=== PATIENT | female | born 1990 ===

== ENCOUNTER 2017-11-19 19:07 | Emergency (ER) | payer MEDICAID ==
[2017-11-19 19:28] VITALS: BMI 26.0
[2017-11-19 19:31] VITALS: RESP 18; TEMP 98.1
[2017-11-19] MEDS ORDERED: Sodium Chloride 0.9% 1,000 ML IV STA (19:34)
--- NOTE | 2017-11-19 19:37 | ED PDOC ---
Arrival/HPI - General Time Seen by Provider: 11/19/17 19:29 Historian: Patient - History of Present Illness Narrative History of Present Illness (Text): 11/19/17 19:34 27yo female who present with complaint of suprapubic/pelvic pain x 2hours. Patient states she is currently 10weeks . states her first OB appointment is next week Saturday. She states pain started suddenly 2hours ago. Describes pain as pulling and cramp. Denies vaginal bleeding, vaginal discharge , nausea, vomiting, diarrhea, constipation, any other complaint. Past Medical History - Provider Review Nursing Documentation Reviewed: Yes Family/Social History - Physician Review Nursing Documentation Reviewed: Yes Family/Social History: Unknown Family HX Allergies/Home Meds Allergies/Adverse Reactions: Allergies No Known Allergies Allergy (Verified 11/19/17 19:33) Home Medications: Home Meds Medication Instructions Recorded Confirmed No Known Home Med 11/19/17 11/19/17 Review of Systems - Physician Review All systems were reviewed & negative as marked: Yes - Review of Systems Constitutional: Normal Eyes: Normal ENT: Normal Respiratory: Normal Cardiovascular: Normal Gastrointestinal: Abdominal Pain. absent: Constipation, Diarrhea, Nausea, Vomiting, Hematochezia, Hematemesis Genitourinary Female: Normal Musculoskeletal: Normal Skin: Normal Neurological: Normal Endocrine: Normal Hemo/Lymphatic: Normal Psychiatric: Normal Physical Exam Vital Signs Reviewed: Yes Vital Signs Temp Pulse Resp BP Pulse Ox 11/19/17 19:31 98.1 F 91 H 18 130/78 98 Temperature: Afebrile Blood Pressure: Normal Pulse: Regular Respiratory Rate: Normal Appearance: Positive for: Well-Appearing, Non-Toxic, Comfortable Pain Distress: None Mental Status: Positive for: Alert and Oriented X 3 - Systems Exam Head: Present: Atraumatic, Normocephalic Pupils: Present: PERRL Extroacular Muscles: Present: EOMI Conjunctiva: Present: Normal Mouth: Present: Moist Mucous Membranes Neck: Present: Normal Range of Motion Respiratory/Chest: Present: Clear to Auscultation, Good Air Exchange. No: Respiratory Distress, Accessory Muscle Use Cardiovascular: Present: Regular Rate and Rhythm, Normal S1, S2. No: Murmurs Abdomen: Present: Normal Bowel Sounds, Other (soft). No: Tenderness, Distention , Peritoneal Signs, Rebound, Guarding, McBurney's Point Tender, Rovsing's Sign Present Back: Present: Normal Inspection Upper Extremity: Present: Normal Inspection. No: Cyanosis, Edema Lower Extremity: Present: Normal Inspection. No: Edema Neurological: Present: GCS=15, CN II-XII Intact, Speech Normal Skin: Present: Warm, Dry, Normal Color. No: Rashes Psychiatric: Present: Alert, Oriented x 3, Normal Insight, Normal Concentration Medical Decision Making ED Course and Treatment: 11/19/17 20:38 Pt in ED for stated history. she was comfortable and hemodynamically stable. She denies vaginal bleeding in ED. Transvaginal US pending Labs pending. Case endorsed to Dr. Salcido to f/u lab/Transvaginal US and dispo accordingly. - Lab Interpretations Lab Results: 11/19/17 19:44 Lab Results 11/19/17 19:44: Sodium 138, Potassium 3.7, Chloride 102, Carbon Dioxide 27, Anion Gap 13, BUN 13, Creatinine 0.6 L, Est GFR ( Amer) > 60, Est GFR ( Non-Af Amer) > 60, Random Glucose 86, Calcium 9.9, Total Bilirubin 0.3, AST 20, ALT 20, Alkaline Phosphatase 54, Total Protein 7.5, Albumin 4.2, Globulin 3.4, Albumin/Globulin Ratio 1.2 - RAD Interpretation Radiology Orders: 11/19/17 19:33 OB TRANSVAGINAL [US] Stat - Medication Orders Current Medication Orders: Discontinued Medications Sodium Chloride (Sodium Chloride 0.9%) 1,000 mls @ 999 mls/hr IV .Q1H1M STA Stop: 11/19/17 20:34 Last Admin: 11/19/17 19:51 Dose: 999 mls/hr eMAR Start Stop Document 11/19/17 19:51 AD (Rec: 11/19/17 19:51 AD [id number]) Intravenous Solution Start Date 11/19/17 Start Time 19:51 Disposition/Present on Arrival - Present on Arrival Any Indicators Present on Arrival: No History of DVT/PE: No History of Uncontrolled Diabetes: No Urinary Catheter: No History of Decub. Ulcer: No History Surgical Site Infection Following: None - Disposition Have Diagnosis and Disposition been Completed?: Yes Diagnosis: Abdominal pain,
[2017-11-19 20:02] LABS: BASO # 0.02 K/mm3 (0.0-2.0); BASO % 0.2 % (0.0-3.0); EOS # 0.1 (0.0-0.7); EOS % 0.8 % (1.5-5.0); GRAN # 5.17 (1.4-6.5); GRAN % 62.6 % (50.0-68.0); LYMPH # 2.4 (1.2-3.4); LYMPH % 28.8 % (22.0-35.0); MEAN CELL VOLUME 76.7 fl (80.0-105.0); MEAN CORPUSCULAR HEMOGLOBIN 24.7 pg (25.0-35.0); MEAN CORPUSCULAR HGB CONC 32.2 g/dl (31.0-37.0); MONO # 0.6 (0.1-0.6); MONO % 7.6 % (1.0-6.0); PLATELET COUNT 165 10^3/uL (120.0-450.0); RBC 4.86 10^6/uL (3.5-6.1); RED CELL DISTRIBUTION WIDTH 20.4 % (11.5-14.5); WHITE BLOOD COUNT 8.3 10^3/ul (4.5-11.0)
[2017-11-19 20:08] LABS: ALB/GLOB RATIO 1.2 (1.1-1.8); ALBUMIN 4.2 g/dL (3.0-4.8); ALT/SGPT 20 U/L (7-56); AST/SGOT 20 U/L (14-36); BLOOD UREA NITROGEN 13 mg/dL (7-21); CALCIUM 9.9 mg/dL (8.4-10.5); GFR AFRICAN-AMERICAN > 60; GFR NON-AFRICAN AMERICAN > 60
[2017-11-19 20:57] LABS: HCG,QUALITATIVE URINE POSITIVE (NEGATIVE)
[2017-11-19 21:00] LABS: INR 0.92 (0.93-1.08); PROTHROMBIN TIME 10.5 SECONDS (9.4-12.5)
[2017-11-19 21:00] LABS: URINE BILIRUBIN NEGATIVE (NEGATIVE); URINE BLOOD NEGATIVE (NEGATIVE); URINE GLUCOSE (UA) NEGATIVE (NEGATIVE); URINE LEUKOCYTE ESTERASE NEGATIVE Leu/uL (NEGATIVE); URINE PROTEIN NEGATIVE mg/dL (<30 mg/dL); URINE UROBILINOGEN 0.2 E.U./dL (<1 E.U./dL)
[2017-11-19 21:01] LABS: URINE APPEARANCE CLEAR (CLEAR); URINE COLOR YELLOW (YELLOW)
--- NOTE | 2017-11-19 21:13 | US ---
EXAM: US First Trimester, Transabdominal CLINICAL HISTORY: 27 years old, female; Pain; complicated by abdominal or pelvic pain; Right lower quadrant; First trimester; Gestational age or lmp: [id number]; ; Additional info: Abdomianl pain/ TECHNIQUE: Real-time transabdominal obstetrical ultrasound of the maternal pelvis and a first trimester with image documentation. COMPARISON: No relevant prior studies available. FINDINGS: Gestation: Single live intrauterine gestation. heart rate of 158 beats per minute. Udell-rump length of 4.1 cm, correlating with gestational age of 11 weeks 0 days. Uterus/cervix: Retroverted uterus. 1.5 x 1.0 x 1.3 cm anterior uterine mass. No subchorionic hemorrhage. No cervical dilatation or effacement. Ovaries: RIGHT ovary: Normal. LEFT ovary: Probable 1.6 x 1.6 x 1.6 cm corpus luteal cyst. No adnexal masses. Free fluid: No significant free fluid. IMPRESSION: 1. Single live intrauterine gestation. 2. Probable fibroid. 3. Incidental/non-acute findings are described above. EXAM: US , Transvaginal CLINICAL HISTORY: 27 years old, female; Pain; complicated by abdominal or pelvic pain; Right lower quadrant; First trimester; Gestational age or lmp: [id number]; ; Additional info: Abdomianl pain/ TECHNIQUE: Real-time transvaginal obstetrical ultrasound of the maternal pelvis and a first trimester with image documentation. Transvaginal imaging was used for better evaluation of the fetus and adnexa. COMPARISON: No relevant prior studies available. FINDINGS: Gestation: Single live intrauterine gestation. heart rate of 158 beats per minute. Udell-rump length of 4.1 cm, correlating with gestational age of 11 weeks 0 days. Uterus/cervix: Retroverted uterus. 1.5 x 1.0 x 1.3 cm anterior uterine mass. No subchorionic hemorrhage. No cervical dilatation or effacement. Ovaries: RIGHT ovary: Normal. LEFT ovary: Probable 1.6 x 1.6 x 1.6 cm corpus luteal cyst. No adnexal masses. Free fluid: No significant free fluid.
[2017-11-19 21:51] VITALS: BP 128/80; PULSE 87; O2SAT 99
== END 2017-11-19 21:52 | disposition home or self-care (01) ==
LOC: ED 19:07
DX: O26.91 Pregnancy related conditions, unspecified, first trimester (principal); R10.9 Unspecified abdominal pain; Z3A.11 11 weeks gestation of pregnancy
CPT/HCPCS: 76817; 80053; 81003; 84702; 84703; 85025; 85610; 85730; 99283; J7040